=== PATIENT | male | born 1960 | race American Indian/Alaskan Native ===

== ENCOUNTER 2017-08-22 21:49 | Emergency (ER) | payer SELFPAY ==
[2017-08-23 05:17] VITALS: BP 137/84
--- NOTE | 2017-08-23 07:29 | Emergency Department Report ---
ED ENT HPI - General Chief complaint: Dental/Oral Stated complaint: TOOTHACHE Time Seen by Provider: 08/23/17 07:24 Source: patient Mode of arrival: Ambulatory Limitations: No Limitations - History of Present Illness Initial comments: 56-year-old -[place] male comes in for complaint of right lower jaw tooth pain that going on for 2 days. Patient does admit that he has poor dental care. He has tried [id number] Orajel and aspirin without much relief. Patient appears to have a past medical history of hypertension is currently on several cardiac medications. He has no known drug allergies. MD complaint: tooth pain -: days(s) (2) Severity scale (0 -10): 8 Consistency: constant Improves with: NSAID Worsens with: other (everything) Context- Dental: history of dental caries, poor dental care - Related Data Home Medications Medication Instructions Recorded Confirmed Last Taken Aspirin 81 mg PO DAILY 08/22/17 08/22/17 Unknown AtorvaSTATin 40 mg PO HS 08/22/17 08/22/17 Unknown Carvedilol 37.5 mg PO BID 08/22/17 08/22/17 Unknown Clopidogrel 75 mg PO DAILY 08/22/17 08/22/17 Unknown Hydrochlorothiazide 25 mg PO DAILY 08/22/17 08/22/17 Unknown hydrALAZINE 50 mg PO TID 08/22/17 08/22/17 Unknown Previous Rx's Medication Instructions Recorded Last Taken Type Acetaminophen with Codeine 1 each PO Q6H PRN #12 tablet 08/23/17 Unknown Rx [Tylenol with Codeine #3 Tablet] Clindamycin HCl 300 mg PO Q8H #30 capsule 08/23/17 Unknown Rx Allergies Allergy/AdvReac Type Severity Reaction Status Date / Time No Known Allergies Allergy Unverified 08/22/17 22:38 ED Dental HPI - General Chief complaint: Dental/Oral Stated complaint: TOOTHACHE Time Seen by Provider: 08/23/17 07:24 Source: patient Mode of arrival: Ambulatory Limitations: No Limitations - Related Data Home Medications Medication Instructions Recorded Confirmed Last Taken Aspirin 81 mg PO DAILY 08/22/17 08/22/17 Unknown AtorvaSTATin 40 mg PO HS 08/22/17 08/22/17 Unknown Carvedilol 37.5 mg PO BID 08/22/17 08/22/17 Unknown Clopidogrel 75 mg PO DAILY 08/22/17 08/22/17 Unknown Hydrochlorothiazide 25 mg PO DAILY 08/22/17 08/22/17 Unknown hydrALAZINE 50 mg PO TID 08/22/17 08/22/17 Unknown Previous Rx's Medication Instructions Recorded Last Taken Type Acetaminophen with Codeine 1 each PO Q6H PRN #12 tablet 08/23/17 Unknown Rx [Tylenol with Codeine #3 Tablet] Clindamycin HCl 300 mg PO Q8H #30 capsule 08/23/17 Unknown Rx Allergies Allergy/AdvReac Type Severity Reaction Status Date / Time No Known Allergies Allergy Unverified 08/22/17 22:38 ED Review of Systems ROS: Stated complaint: TOOTHACHE Other details as noted in HPI Constitutional: see HPI Eyes: denies: eye pain, eye discharge, vision change ENT: dental pain Respiratory: denies: cough, shortness of breath, wheezing Cardiovascular: denies: chest pain, palpitations Endocrine: no symptoms reported Gastrointestinal: denies: abdominal pain, nausea, diarrhea Genitourinary: denies: urgency, dysuria Musculoskeletal: denies: back pain, joint swelling, arthralgia Skin: denies: rash, lesions Neurological: denies: headache, weakness, paresthesias Psychiatric: denies: anxiety, depression ED Past Medical Hx - Past Medical History Hx Hypertension: Yes - Surgical History Hx Coronary Stent: Yes - Social History Smoking Status: Never Smoker Substance Use Type: None - Medications Home Medications: Home Medications Medication Instructions Recorded Confirmed Last Taken Type Aspirin 81 mg PO DAILY 08/22/17 08/22/17 Unknown History AtorvaSTATin 40 mg PO HS 08/22/17 08/22/17 Unknown History Carvedilol 37.5 mg PO BID 08/22/17 08/22/17 Unknown History Clopidogrel 75 mg PO DAILY 08/22/17 08/22/17 Unknown History Hydrochlorothiazide 25 mg PO DAILY 08/22/17 08/22/17 Unknown History hydrALAZINE 50 mg PO TID 08/22/17 08/22/17 Unknown History Acetaminophen with Codeine 1 each PO Q6H PRN #12 tablet 08/23/17 Unknown Rx [Tylenol with Codeine #3 Tablet] Clindamycin HCl 300 mg PO Q8H #30 capsule 08/23/17 Unknown Rx ED Physical Exam - General Limitations: No Limitations General appearance: alert, in no apparent distress - Head Head exam: Present: atraumatic, normocephalic - Eye Eye exam: Present: normal appearance - Expanded ENT Exam Expanded Teeth exam: Present: dental caries, dental tenderness # (32), gingival enlargement Throat exam: Positive: normal inspection - Neck Neck exam: Present: normal inspection, full ROM. Absent: lymphadenopathy - Respiratory Respiratory exam: Present: normal lung sounds bilaterally. Absent: respiratory distress - Cardiovascular Cardiovascular Exam: Present: regular rate, normal rhythm. Absent: systolic murmur, diastolic murmur, rubs, gallop - Neurological Exam Neurological exam: Present: alert, oriented X3 - Psychiatric Psychiatric exam: Present: normal affect, normal mood ED Course Vital Signs 08/22/17 08/23/17 22:30 05:16 Temperature 98 F Pulse Rate 60 67 Respiratory 16 18 Rate Blood Pressure 132/87 Blood Pressure 137/84 [Left] O2 Sat by Pulse 100 98 Oximetry ED Medical Decision Making - Medical Decision Making Patient has been evaluated by this provider fast track. I will place patient on clindamycin for infection of tooth #32 and would give him Tylenol No. 3 for pain management and have him follow-up with the primary care provider. Patient is on Plavix and aspirin site do not want to give him ibuprofen. Patient verbalized understanding. Critical care attestation.: If time is entered above; I have spent that time in minutes in the direct care of this critically ill patient, excluding procedure time. ED Disposition Clinical Impression: Dental abscess, Caries involving multiple surfaces of tooth Disposition: [id number] TO HOME OR SELFCARE Is pt being admited?: No Does the pt Need Aspirin: No Condition: Stable Instructions: Dental Abscess (ED) Additional Instructions: Complete antibiotics as prescribed. Take Tylenol 3 as needed do not operate heavy machinery or drive a car on this medication. It is very important free to follow up with the dentist. Prescriptions: Acetaminophen with Codeine [Tylenol with Codeine #3 Tablet] 1 each PO Q6H PRN # 12 tablet PRN Reason: Pain Clindamycin HCl 300 mg PO Q8H #30 capsule Referrals: PRIMARY CARE, [Primary Care Provider] - 3-5 Days Forms: Work/School Release Form(ED)
== END 2017-08-23 07:43 | disposition home or self-care (01) ==
LOC: ED 21:49
DX: K04.7 Periapical abscess without sinus (principal); I10 Essential (primary) hypertension; Z95.818 Presence of other cardiac implants and grafts
CPT/HCPCS: 99282